=== PATIENT | male | born 1970 | race Caucasian/White ===

== ENCOUNTER 2020-03-08 20:51 | Emergency (ER) | payer BC, OTHER ==
[~2020-03-08] VITALS: Ht 185.5 cm; Wt 99.8 kg
[2020-03-08] MEDS ORDERED: LACTATED RINGERS 1,000 ML IV ONE (21:17)
[2020-03-08 21:26] LABS: BASOPHILS # (AUTO) 0.1 10^3/uL (0.0-0.1); BASOPHILS % (AUTO) 1 % (0-10); EOSINOPHILS # (AUTO) 0.2 10^3/uL (0.0-0.3); EOSINOPHILS % (AUTO) 4 % (0-10); HEMATOCRIT 43 % (40-54); HEMOGLOBIN 15.8 G/DL (13.3-17.7); LYMPHOCYTES # (AUTO) 1.9 X 10^3 (1.0-4.0); LYMPHOCYTES % (AUTO) 29 % (12-44); MEAN CORPUSCULAR HEMOGLOBIN 34 PG (25-34); MEAN CORPUSCULAR HGB CONC 37 G/DL (32-36); MEAN CORPUSCULAR VOLUME 93 FL (80-99); MEAN PLATELET VOLUME 11.9 FL (7.4-10.4); MONOCYTES # (AUTO) 0.8 X 10^3 (0.0-1.0); MONOCYTES % (AUTO) 12 % (0-12); NEUTROPHILS # (AUTO) 3.6 X 10^3 (1.8-7.8); NEUTROPHILS % (AUTO) 55 % (42-75); PLATELET COUNT 128 10^3/uL (130-400); RED CELL DISTRIBUTION WIDTH 13.2 % (10.0-14.5); WHITE BLOOD COUNT 6.6 10^3/uL (4.3-11.0)
[2020-03-08 21:27] LABS: BILIRUBIN,URINE NEGATIVE (NEGATIVE); CLARITY,URINE CLEAR; COLOR,URINE YELLOW; GLUCOSE, URINE (UA) NEGATIVE (NEGATIVE); KETONES,URINE NEGATIVE (NEGATIVE); LEUKOCYTE ESTERASE ,URINE TRACE (NEGATIVE); NITRITE,URINE NEGATIVE (NEGATIVE); PH,URINE 5.5 (5-9); PROTEIN,URINE NEGATIVE (NEGATIVE)
[2020-03-08] MEDS ORDERED: TETANUS,DIPTH,PERTUSS P/F (BOOSTRIX) 0.5 ML VIAL IM ONE (21:30)
[2020-03-08] MEDS ORDERED: ONDANSETRON 4 MG/2 ML (SDV) Z0FRAN IVP ONE (21:30)
[2020-03-08 21:32] LABS: BACTERIA,URINE NEGATIVE /HPF; SQUAMOUS EPITHELIAL CELL,UR RARE /HPF; WBC,URINE RARE /HPF
[2020-03-08 21:39] LABS: ALANINE AMINOTRANSFERASE 25 U/L (0-55); ALBUMIN 4.4 GM/DL (3.2-4.5); ALKALINE PHOSPHATASE 65 U/L (40-136); AMPHETAMINE SCREEN, URINE NEGATIVE (NEGATIVE); BARBITURATE SCREEN URINE NEGATIVE (NEGATIVE); BENZODIAZEPINES SCREEN URINE NEGATIVE (NEGATIVE); BILIRUBIN,TOTAL 0.7 MG/DL (0.1-1.0); BUN/CREATININE RATIO 24; CALCIUM 8.7 MG/DL (8.5-10.1); CANNABINOID SCREEN, URINE NEGATIVE (NEGATIVE); CARBON DIOXIDE 22 MMOL/L (21-32); CHLORIDE 106 MMOL/L (98-107); COCAINE SCREEN URINE NEGATIVE (NEGATIVE); GFR ESTIMATED > 60; GLUCOSE 90 MG/DL (70-105); METHADONE STAT NEGATIVE (NEGATIVE); METHAMPHETAMINE SCREEN URINE S NEGATIVE (NEGATIVE); OPIATE SCREEN URINE NEGATIVE (NEGATIVE); OXYCODONE STAT NEGATIVE (NEGATIVE); PROPOXYPHENE STAT NEGATIVE (NEGATIVE); SODIUM 138 MMOL/L (135-145); TOTAL PROTEIN 6.9 GM/DL (6.4-8.2); TRICYCLIC ANTIDEPRESSANTS SCRE NEGATIVE (NEGATIVE)
--- NOTE | 2020-03-08 22:00 | Diagnostic Imaging Report ---
INDICATION: Fell, laceration to the back of the head. TECHNIQUE: CT of the head and CT of the cervical spine without contrast. All CT scans use one or more of the following dose optimizing techniques: automated exposure control, MA and/or KvP adjustment based on patient size and exam type or iterative reconstruction. COMPARISON STUDY: None. FINDINGS: CT head: Noncontrast CT scanning of the head demonstrates no mass effect, midline shift, hemorrhage or extra-axial fluid collection. The culver-white matter differentiation is normal. The ventricles, cortical sulci and basilar cisterns appear normal. A punctate calcification is present in the right temporal lobe on axial image 13 and coronal image 42. Osseous structures are normal. CT cervical spine: Noncontrast CT scanning of the cervical spine demonstrates no fracture or subluxation. Soft tissues appear normal. Degenerative changes are present. The C4-C5 level demonstrates posterior osteophytes with mild central stenosis. C5-C6 level demonstrates fusion of the vertebrae. Osteophytic ridging is present with mild to moderate narrowing of the right neural foramina. IMPRESSION: 1. CT scan of the head demonstrates punctate calcification in the left temporal lobe with no acute finding. 2. Degenerative change is present in the cervical spine with no acute finding. Dictated on workstation # [id number]
--- NOTE | 2020-03-08 22:11 | ED Fall/Injury ---
General Chief Complaint: Trauma-Non Activation Stated Complaint: FALL Nursing Triage Note: [place] [facility] [place] WITH COMPLAINT OF [place]. PT WAS INTOXICATED WHEN HE FELL AND HIT HEAD, LOC FOR APPROX 15 SECONDS. PT HAS LACERATION TO HEAD. PT DENIES PAIN. PT IS ALERT AND ORIENTED ON ARRIVAL TO ED. CCOLLAR PLACED BY EMS. Source: patient, EMS Exam Limitations: intoxication History of Present Illness Date Seen by Provider: Mar 08, 2020 Time Seen by Provider: 20:53 Initial Comments This 49-year-old man presents to the emergency room via EMS after having a [place]. He is in town for work and has had a considerable amount of alcohol to drink tonight. Witnesses said he just fell straight backwards striking his head on the floor. There is some bleeding and an apparent hematoma associated with this. He reportedly had a loss of consciousness for about 15 minutes. He is alert and talkative but intoxicated on arrival. He has no focal deficits. He denies any use of blood thinners. Allergies and Home Medications Allergies Coded Allergies: No Known Drug Allergies (Unverified , 03/08/20) Patient Home Medication List Home Medication List Reviewed: Yes Review of Systems Review of Systems Constitutional: no symptoms reported Eyes: No Symptoms Reported Ears, Nose, Mouth, Throat: no symptoms reported Respiratory: no symptoms reported Cardiovascular: no symptoms reported Gastrointestinal: no symptoms reported Genitourinary: no symptoms reported Musculoskeletal: see HPI Skin: see HPI Psychiatric/Neurological: See HPI Past Dwnrmez-Ncugvz-Llxbdo Hx Past Med/Social Hx: Reviewed Nursing Past Med/Soc Hx Patient Social History Alcohol Use: Occasionally Uses Recreational Drug Use: No Smoking Status: Never a Smoker Recent Foreign Travel: No Contact w/Someone Who Travel: No Recent Infectious Disease Expo: No Recent Hopitalizations: No Immunizations Up To Date Tetanus Booster (TDap): Unknown PED Vaccines UTD: Yes Seasonal Allergies Seasonal Allergies: No Past Medical History Surgeries: Yes (LAP BAND) Respiratory: No Cardiac: Yes Hypertension Neurological: No Genitourinary: No Gastrointestinal: No Musculoskeletal: No Endocrine: No HEENT: No Cancer: No Psychosocial: No Blood Disorders: No Physical Exam Vital Signs Vital Signs - First Documented 03/08/20 20:52 Temp 36.8 Pulse 74 Resp 20 B/P (MAP) 134/99 (111) Pulse Ox 97 O2 Delivery Room Air Capillary Refill : Less Than 3 Seconds Height, Weight, BMI Height: '" Weight: lbs. oz. kg; 29.00 BMI Method: General Appearance: WD/WN, no apparent distress HEENT: PERRL/EOMI, pharynx normal, other (large hematoma on the posterior scalp. Bleeding has stopped. 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, no motor/sensory deficits, alert, other (intoxicated, disoriented to place) Skin: normal color, warm/dry [place] Coma Score Best Eye Response: (4) Open Spontaneously Best Verbal Response: (5) Oriented Best Motor Response: (6) Obeys Commands Progress/Results/Core Measures Results/Orders Lab Results Laboratory Tests Test 03/08/20 21:05 Range/Units White Blood Count 6.6 4.3-11.0 10^3/uL Red Blood Count 4.68 4.35-5.85 10^6/uL Hemoglobin 15.8 13.3-17.7 G/DL Hematocrit 43 40-54 % Mean Corpuscular Volume 93 80-99 FL Mean Corpuscular Hemoglobin 34 25-34 PG Mean Corpuscular Hemoglobin Concent 37 H 32-36 G/DL Red Cell Distribution Width 13.2 10.0-14.5 % Platelet Count 128 L 130-400 10^3/uL Mean Platelet Volume 11.9 H 7.4-10.4 FL Neutrophils (%) (Auto) 55 42-75 % Lymphocytes (%) (Auto) 29 12-44 % Monocytes (%) (Auto) 12 0-12 % Eosinophils (%) (Auto) 4 0-10 % Basophils (%) (Auto) 1 0-10 % Neutrophils # (Auto) 3.6 1.8-7.8 X 10^3 Lymphocytes # (Auto) 1.9 1.0-4.0 X 10^3 Monocytes # (Auto) 0.8 0.0-1.0 X 10^3 Eosinophils # (Auto) 0.2 0.0-0.3 10^3/uL Basophils # (Auto) 0.1 0.0-0.1 10^3/uL Urine Color YELLOW Urine Clarity CLEAR Urine pH 5.5 5-9 Urine Specific [place] <=1.005 1.016-1.022 Urine Protein NEGATIVE NEGATIVE Urine Glucose (UA) NEGATIVE NEGATIVE Urine Ketones NEGATIVE NEGATIVE Urine Nitrite NEGATIVE NEGATIVE Urine Bilirubin NEGATIVE NEGATIVE Urine Urobilinogen 0.2 < = 1.0 MG/DL Urine Leukocyte Esterase TRACE H NEGATIVE Urine RBC (Auto) NEGATIVE NEGATIVE Urine RBC NONE /HPF Urine WBC RARE /HPF Urine Squamous Epithelial Cells RARE /HPF Urine Crystals NONE /LPF Urine Bacteria NEGATIVE /HPF Urine Casts NONE /LPF Urine Mucus NEGATIVE /LPF Urine Culture Indicated NO Sodium Level 138 135-145 MMOL/L Potassium Level 4.0 3.6-5.0 MMOL/L Chloride Level 106 98-107 MMOL/L Carbon Dioxide Level 22 21-32 MMOL/L Anion Gap 10 5-14 MMOL/L Blood Urea Nitrogen 22 H 7-18 MG/DL Creatinine 0.90 0.60-1.30 MG/DL Estimat Glomerular Filtration Rate > 60 BUN/Creatinine Ratio 24 Glucose Level 90 70-105 MG/DL Calcium Level 8.7 8.5-10.1 MG/DL Corrected Calcium 8.4 L 8.5-10.1 MG/DL Total Bilirubin 0.7 0.1-1.0 MG/DL Aspartate Amino Transf (AST/SGOT) 21 5-34 U/L Alanine Aminotransferase (ALT/SGPT) 25 0-55 U/L Alkaline Phosphatase 65 40-136 U/L Total Protein 6.9 6.4-8.2 GM/DL Albumin 4.4 3.2-4.5 GM/DL Urine Opiates Screen NEGATIVE NEGATIVE Urine Oxycodone Screen NEGATIVE NEGATIVE Urine Methadone Screen NEGATIVE NEGATIVE Urine Propoxyphene Screen NEGATIVE NEGATIVE Urine Barbiturates Screen NEGATIVE NEGATIVE Ur Tricyclic Antidepressants Screen NEGATIVE NEGATIVE Urine Phencyclidine Screen NEGATIVE NEGATIVE Urine Amphetamines Screen NEGATIVE NEGATIVE Urine Methamphetamines Screen NEGATIVE NEGATIVE Urine Benzodiazepines Screen NEGATIVE NEGATIVE Urine Cocaine Screen NEGATIVE NEGATIVE Urine Cannabinoids Screen NEGATIVE NEGATIVE Serum Alcohol 242 H <10 MG/DL My Orders Orders - AMY BERUMEN MD Ct Head/Cervical Spine Wo (03/08/20 21:17) Alcohol (03/08/20 21:17) Cbc With Automated Diff (03/08/20 21:17) Comprehensive Metabolic Panel (03/08/20 21:17) Drug Screen Stat (Urine) (03/08/20 21:17) Ua Culture If Indicated (03/08/20 21:17) Dipht,Pertuss(Acell),Tet Adult (Boostrix (03/08/20 21:30) Ed Iv/Invasive Line Start (03/08/20 21:17) Lactated Ringers (Lr 1000 Ml Iv Solution (03/08/20 21:17) Ondansetron Injection (Zofran Injectio (03/08/20 21:30) Medications Given in ED Current Medications Medications Dose Ordered Sig/Riddhi Route Start Time Stop Time Status Last Admin Dose Admin Diphtheria/ Tetanus/Acell Pertussis 0.5 ml ONCE ONCE IM 03/08/20 21:30 03/08/20 21:31 DC 03/08/20 21:28 0.5 ML Lactated Ringer's 1,000 ml @ 0 mls/hr Q0M ONCE IV 03/08/20 21:17 03/08/20 21:19 DC 03/08/20 21:28 0 MLS/HR Ondansetron HCl 8 mg ONCE ONCE IVP 03/08/20 21:30 03/08/20 21:31 DC 03/08/20 21:28 8 MG Vital Signs/I&O 03/08/20 03/08/20 20:52 23:44 Temp 36.8 36.8 Pulse 74 68 Resp 20 12 B/P (MAP) 134/99 (111) 145/107 (111) Pulse Ox 97 100 O2 Delivery Room Air Blood Pressure Mean: 111 Progress Progress Note : Time: 23:55 Progress Note Patient remained in c-collar until CT scans were reviewed. C-collar was cleared after reviewing the reports. Patient had a large hematoma on the posterior scalp with a shallow mashed laceration that did not require repair. Bleeding did stop without any interventions. Wound was cleaned with chlorhexidine and saline. Boostrix tetanus immunization was administered. IV fluids were ad ministered. Patient was allowed time to sober. He then demonstrated ability to get up and walk independently and safely to the restroom and back. His coworkers were contacted and his supervisor packing came to pick him up. Discharge instructions were reviewed. A work note was provided. Patient's is being contacted by nursing staff to provide an update. Diagnostic Imaging Diagonstic Imaging: CT Plain Films/CT/US/NM/MRI: c-spine, head Comments CT head and cervical spine viewed by me and report reviewed. See report below: NAME: DARRELL MARQUEZ [facility] REC#: [id number] PT STATUS: REG ER : 1970 PHYSICIAN: AMY BERUMEN MD ADMIT DATE: 03/08/20/ER Draft Date of Exam:03/08/20 CT HEAD/CERVICAL SPINE WO INDICATION: Fell, laceration to the back of the head. TECHNIQUE: CT of the head and CT of the cervical spine without contrast. All CT scans use one or more of the following dose optimizing techniques: automated exposure control, MA and/or KvP adjustment based on patient size and exam type or iterative reconstruction. COMPARISON STUDY: None. FINDINGS: CT head: Noncontrast CT scanning of the head demonstrates no mass effect, midline shift, hemorrhage or extra-axial fluid collection. The culver-white matter differentiation is normal. The ventricles, cortical sulci and basilar cisterns appear normal. A punctate calcification is present in the right temporal lobe on axial image 13 and coronal image 42. Osseous structures are normal. CT cervical spine: Noncontrast CT scanning of the cervical spine demonstrates no fracture or subluxation. Soft tissues appear normal. Degenerative changes are present. The C4-C5 level demonstrates posterior osteophytes with mild central stenosis. C5-C6 level demonstrates fusion of the vertebrae. Osteophytic ridging is present with mild to moderate narrowing of the right neural foramina. IMPRESSION: 1. CT scan of the head demonstrates punctate calcification in the left temporal lobe with no acute finding. 2. Degenerative change is present in the cervical spine with no acute finding. Dictated on workstation # [id number] Dict: 03/08/202151 Trans: 03/08/202158 [facility] [id number] Interpreted by: AYLIN CARDOZA MD Departure Impression Primary Impression: Concussion with brief LOC Additional Impressions: Alcohol intoxication Qualified Codes: F10.929 - Alcohol use, unspecified with intoxication, unspecified Scalp hematoma Qualified Codes: S00.03XA - Contusion of scalp, initial encounter Scalp laceration Qualified Codes: S01.01XA - Laceration without foreign body of scalp, initial encounter Disposition: HOME, SELF-CARE Condition: Improved Departure-Patient Inst. Decision time for Depature: 23:23 Referrals: NO,LOCAL PHYSICIAN (PCP/Family) Primary Care Physician Patient Instructions: Concussion, Adult (DC), HEMATOMA Add. Discharge Instructions: Do not return to work or drive for 48 hours and until all concussion symptoms have resolved. Then gradually increase level of activity as symptoms allow. If any activity causes a return of concussion symptoms such as headache, nausea, vision changes, confusion, irritability, etc., then stop that activity and rest. Follow-up with a medical provider as soon as possible. Avoid any activity that would predispose you to further head injury such as use of ladders, ATVs, motorcycles, livestock, contact sports, etc. until concussion symptoms have been resolved for at least 7 days. Return to care if you have worsening symptoms. You may take Tylenol and/or ibuprofen for pain. Applying ice to sore areas may be helpful as well. All discharge instructions reviewed with patient and/or family. Voiced understanding. Work/School Note: Work Release Form Date Seen in the Emergency Department: Mar 08, 2020 Return to Work: Mar 11, 2020 Other Restrictions Listed Below: Return to work when free of concussion symptoms after a minimum of 48 hours Restrictions: Stop and rest if any activity causes recurrence of concussion symptoms. AMY BERUMEN MD Mar 08, 2020 22:11
[2020-03-08 23:44] VITALS: BP 145/107
--- NOTE | 2020-03-08 23:58 | NUR ---
called and gave update that pt was being discharged and was taken back to the hotel by his manager meat, Kim, and co-worker, Micky. stated she had no further questions or concerns.
== END 2020-03-08 23:50 | disposition home or self-care (01) ==
LOC: ER 20:53
DX: S06.0X9A Concussion with loss of consciousness of unspecified duration, initial encounter (principal); S01.01XA Laceration without foreign body of scalp, initial encounter; F10.129 Alcohol abuse with intoxication, unspecified; R40.2250 Coma scale, best verbal response, oriented, unspecified time; R40.2360 Coma scale, best motor response, obeys commands, unspecified time; R40.2140 Coma scale, eyes open, spontaneous, unspecified time; Z23 Encounter for immunization; W18.39XA Other fall on same level, initial encounter; W22.8XXA Striking against or struck by other objects, initial encounter
CPT/HCPCS: 70450; 72125; 80053; 80306; 81000; 85025; 99284; G0480; 36415; 80320; 90715